=== PATIENT | female | born 1970 | race Caucasian/White ===

== ENCOUNTER 2016-10-10 19:08 | Emergency (ER) | payer OTHER ==
--- NOTE | 2016-10-10 20:56 | ED NURSING NOTES ---
Clinical Report - Nurses [facility] [address] [place] [address] 10/10/2016 19:09 Patient: JASE SPARROW TRIAGE Triage time 1915. Acuity: LEVEL 2. Chief Complaint: CHEST PAIN. --19:22 Nicholas Valentine R.N. 19:15 10/10/16. BP: 166/107. HR: 90. RR: 18. O2 saturation: 100%. Temp: 98.4 F. Pain level now 03/26. --19:22 Nicholas Valentine R.N. Weight: 81.6 kg stated. Height/Length: 61 inches Per Patient. BMI: 34. --19:21 Nicholas Valentine R.N. Medications Aspirin Oral. --19:18 Nicholas Valentine R.N. Tylenol PM Extra Strength Oral. --19:19 Nicholas Valentine R.N. Allergies Codeine. --19:19 Nicholas Valentine R.N. History Arrived by private vehicle. Historian: patient. Accompanied by spouse. Onset. (about 3 weeks ago). ( much worse starting at about noon. pt at work at the time and couldn't leave work.). 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 SOCIAL HX: Alcohol use; consumes three glasses of wine daily. History of weekly drug use: marijuana. Recently used drugs yesterday. FALL RISK ASSESSMENT: Fall risk assessment completed. No fall risk identified. NUTRITIONAL RISK ASSESSMENT: The nutritional risk assessment revealed no deficiencies. FUNCTIONAL ASSESSMENT: Functional assessment: no impairments noted. LEARNING NEEDS ASSESSMENT: The learning needs assessment revealed no barriers. SKIN INTEGRITY ASSESSMENT: Skin integrity risk assessment completed. No skin integrity risk identified. --19:22 Nicholas Valentine R.N. PROBLEMS: Anxiety Reaction. Atypical Chest Pain. Gastroesophageal Reflux. --19:20 Nicholas Valentine R.N. ADDITIONAL SURGERIES: Appendectomy. Hysterectomy. Oophorectomy. --19:20 Meme, Nicholas, R.N. PHYSICAL ASSESSMENT Ambulatory to room. GENERAL / NEURO / PSYCH: Alert. Oriented X 4. Appears anxious. HEENT: Mucous membranes are pink. RESPIRATORY: Respirations not labored. Breath sounds within normal limits. CVS: Heart sounds within normal limits. Pulses within normal limits. Capillary refill less than 2 seconds. GI / : Abdomen soft and nontender. EXTREMITIES: No lower extremity edema. SKIN: Skin is warm and dry. Normal skin turgor. --19:23 Nicholas Valentine R.N. NURSING PROGRESS NOTES 19:25 10/10/2016 Site #1 started via IV in the left antecubital space with an 20g angiocath, with aseptic technique and good blood return; one attempt. Blood drawn: rainbow set. Labeled in the presence of the patient and sent to the lab. Saline lock flushed with saline. --19:25 Nicholas Valentine R.N. Cardiac rhythm: normal sinus rhythm. Monitoring of patient in place. EKG was performed by a tech and shown to the ED physician. Patient gowned. Head of bed elevated. Reassurance given. Patient identifiers checked. Call light placed in reach. Side rails up x 2. Bed placed in lowest position. Brakes of bed on. --19:27 Nicholas Valentine R.N. EKG time: (1918). EKG was ordered, performed by a tech and shown to the ED physician. --19:32 Robe Goldberg ER Radiator Specialist 20:25 10/10/2016 GI COCKTAIL WHITE (Simethicone) PO 50 mL given. Allergies verified and confirmed 5 rights. --20:35 Nicholas Valentine R.N. 20:26 10/10/2016 Ativan (LORazepam) IVP 1 mg given. via site #1. Allergies verified, confirmed 5 rights and sedative warning given to the patient and patient's signal fitter. IV patency established. IV site checked: no pain, redness, or swelling. IV flushed thoroughly pre- and post-medication administration. --20:36 Nicholas Valentine R.N. 21:12. The patient is calm and resting quietly. RESPIRATORY: No respiratory distress. SKIN: Skin is warm and dry. Skin color within normal limits. --21:14 Jesse Balbuena R.N. DISPOSITION / DISCHARGE 21:09 10/10/2016 Site #1 removed upon discharge. Catheter intact. Bandage applied. --21:14 Jesse Balbuena R.N. Departure time: 21:14. Condition at departure: stable. No learning barriers present. Discharge instructions provided and reviewed with the patient and spouse. Reviewed medication(s) side effects, precautions, dosing and course information. Prescription(s) given to the patient. Patient and spouse verbalized understanding. Written instructions provided in Syrian. The patient was discharged home and accompanied by spouse. She left the Emergency Department ambulatory and via private vehicle. Spouse driving. FALL RISK ASSESSMENT: Fall risk assessment completed. No fall risk identified. --21:14 Jesse Balbuena R.N. 21:07 10/10/16. BP: 144/90. HR: 88. RR: 15. O2 saturation: 100% on room air. --21:14 Jesse Balbuena R.N. Locked/Released at 10/11/2016 0:04 by Jesse Balbuena R.N.
--- NOTE | 2016-10-10 20:56 | ED ORDER SUMMARY ---
..... Patient: JASE SPARROW OrderSheet [facility] VisitID: [id number] [place] [address] 46y, F Registration Date/Time: 10/10/2016 ORDER SHEET Weight: 81.6 kg (stated) Allergies: Codeine GENERAL ORDERS: Call Center Support Representative (Continuous) (19:10/10/2016 Leeanna KENNEDY) (Ack 19:32 LMuller) (20:13 Meghann R.N.) Cardiac Panel Stat (:10/10/2016 Leeanna KENNEDY) (Ack 19:32 LMuller) (20:13 Meghann R.N.) D-Dimer Urgent (:10/10/2016 Leeanna KENNEDY) (Ack 19:32 LMuller) (20:13 Meghann R.N.) TSH Urgent (:10/10/2016 Leeanna KENNEDY) (Ack 19:32 LMuller) (20:13 Meghann R.N.) Pulse oximeter (:30 10/10/2016 Leeanna KENNEDY) (Ack 19:32 LMuller) (20:13 Meghann R.N.) EKG - ER Stat (:10/10/2016 Leeanna KENNEDY) (19:32 CHagerty ER Electromechanical Assembly Technician) (Ack 19:32 LMuller) (19:32 LMuller) MEDICATION ORDERS: GI Cocktail WHITE PO 50 mL (NOW) (19:10/10/2016 Leeanna KENNEDY) (20:35 Meghann R.N.) IV FLUIDS: Ativan IV 1 mg (NOW) (19:10/10/2016 Leeanna KENNEDY) (20:36 Meghann R.N.) IV Saline Lock (:10/10/2016 Leeanna KENNEDY) (20:13 Meghann R.N.) ORDER SHEET NOTES: [Electronically signed by Jesse Balbuena R.N. (00:04 10/11/2016)] [Electronically signed by Moises Dick MD (20:48 10/14/2016)] [Electronically locked/signed by Jesse Balbuena R.N. (00:04 10/11/2016)]
--- NOTE | 2016-10-10 20:56 | ED CLINICAL REPORT ---
Clinical Report - Physicians/Mid Levels [facility] [address] [place] [address] 10/10/2016 19:09 Patient: JASE SPARROW Time Seen: 19:25 Oct 10 2016. Arrived- By private vehicle. Historian- patient. CPT: ER phys charges level 4 plus (#[id number]). EKG interpretation (#[id number]). HISTORY OF PRESENT ILLNESS Chief Complaint: CHEST PAIN. It is described as tightness, aching, "pain" and well localized and it is described as located in the left chest area. This started about 3 weeks ago; about 3 weeks ago). ( much worse starting at about noon. pt at work at the time and couldn't leave work.). and is still present (worse today). No nausea, vomiting or diaphoresis. She has had difficulty breathing (Transient). (Patient indicates that she's been under a huge amount of stress since February 2016. 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 She has not been getting regular sleep.). Similar symptoms previously: None. Recent medical care: Not recently seen/assessed. REVIEW OF SYSTEMS No fever, chills, cough, pedal edema or calf pain. No fainting episodes, sore throat, abdominal pain, black stools or difficulty with urination. No skin rash, enlarged lymph nodes or joint pain. All systems otherwise negative, except as recorded above. PAST HISTORY Appendectomy. Hysterectomy. Oophorectomy. SOCIAL HISTORY Alcohol use. History of drug use: marijuana. ADDITIONAL NOTES The nursing notes have been reviewed. PHYSICAL EXAM Vital Signs: 10/10/2016 19:15 BP: 166/107. HR: 90. RR: 18. O2 saturation: 100%. Temp: 98.4 F. Appearance: Alert. Anxious. Marfanoid habitus. Eyes: Eyes normal inspection. ENT: Pharynx normal. Neck: Normal inspection. Neck supple. CVS: Normal heart rate and rhythm. Heart sounds normal. Pulses normal. Respiratory: No respiratory distress. Breath sounds normal. Chest nontender. Abdomen: Mild tenderness in the epigastric area. Back: Normal external inspection. Skin: Skin warm. Normal skin color. No rash. Extremities: Extremities exhibit normal ROM. No lower extremity edema. Neuro: Oriented X 3. No motor deficit. No sensory deficit. Abnormal reflexes. LABS, X-RAYS, AND EKG EKG: Normal EKG. Laboratory Tests: CBC w Diff: (YOUNG: 10/10/2016 19:25) ( MsgRcvd 10/10/2016 19:35) Final results Test Result Flag Units (Reference) WHITE BLOOD COUNT 7.6 K/uL (4.5-11.5) RED BLOOD COUNT 4.32 M/uL (4.00-5.20) HEMOGLOBIN 13.4 gm/dL (12.0-16.0) HEMATOCRIT 40.1 % (36.0-46.0) MEAN CELL VOLUME 93 fL (80-100) MEAN CORPUSCULAR HGB 31 pg (26-34) MEAN CORPUSCULAR HGB CONC 34 g/dL (31-37) RED CELL DISTRIBUTION WIDTH 11.7 % (11.6-14.8) PLATELET COUNT 201 K/uL (150-400) NEUTROPHIL % 65.2 % (50-75) LYMPH % 26.7 % (25-40) MONO % 6.5 % (3-14) EOSINOPHIL % 1.0 % (0-4) BASOPHIL % 0.6 % (0-2) [id number]: (YOUNG: 10/10/2016 19:25) ( MsgRcvd 10/10/2016 19:49) Final results Test Result Flag Units (Reference) D-DIMER QUANTITATIVE < 0.27 L ug/mLFEU (0.27-0.52) The primary value of this quantitative assay relates toits negative predictive value (i.e. exclusion) of pulmonaryembolism/deep vein thrombosis/DIC.Elevated levels of d-dimer may also occur with:, age, cancer, inflammation, liver disease,post-op, infection, hematoma, coronary disease, peripheralarteriopathy, bleeding disorders and thrombolytic treatment.Results should be correlated with other clinical andradiological data.Testing Methodology: Latex Immunoassay TSH: (YOUNG: 10/10/2016 19:25) ( MsgRcvd 10/10/2016 20:14) Final results Test Result Flag Units (Reference) THYROID STIMULATING HORMONE 7.624 H uIU/mL (0.34-3.74) CHEM 13 PANEL: (YOUNG: 10/10/2016 19:25) ( MsgRcvd 10/10/2016 20:13) Final results Test Result Flag Units (Reference) GLUCOSE 100 mg/dL (70-110) BUN 17 mg/dL (7-18) CREATININE 0.8 mg/dL (0.6-1.3) Estimated GFR >60 mL/min Estimated GFR- >60 mL/min Note: Persistent reduction over 3 months in eGFR<60 mL/min/1.73 m2 defines CKD. Patients with eGFR values>=60 mL/min/1.73 m2 may also have CKD if evidence ofpersistent proteinuria. Additional information may be foundat www.kidney.org. SODIUM 139 mmol/L (136-145) POTASSIUM 3.6 mmol/L (3.5-5.1) CHLORIDE 101 mmol/L (98-107) CARBON DIOXIDE 26 mmol/L (21-32) CALCIUM 9.2 mg/dL (8.5-10.1) TOTAL PROTEIN 8.2 g/dL (6.4-8.2) ALBUMIN 4.4 g/dL (3.3-5.0) BILIRUBIN, TOTAL 1.1 H mg/dL (0.0-1.0) ALKALINE PHOSPHATASE 57 U/L (46-116) AST (SGOT) 20 U/L (15-37) ALT (SGPT) 30 U/L (12-78) CPK 104 U/L (24-260) MAGNESIUM 1.9 mg/dL (1.8-2.4) TROPONIN I <0.05 L ng/mL (0.00-1.5) TROPONIN REFERENCE RANGE:<0.1 NEGATIVE0.1-1.5 INDETERMINANT>1.5 POSITIVE . PROGRESS AND PROCEDURES Course of Care: Hep-Lock Ativan 1 mg IV White GI cocktail 50 ML's by mouth. Patient is stable. The patient's symptoms are now gone. Symptoms much better. Patient/family counseled. Disposition: Discharged. Condition: stable and improved. CLINICAL IMPRESSION Anxiety reaction with hyperventilation. Chest pain of GI origin (due to esophageal reflux). Multiple stressors. INSTRUCTIONS Avoid stimulants (such as cigarettes, coffee, cold medicines, sinus medicines, street drugs). (regular exercise, diet and sleep are important.). Warnings: Further evaluation is necessary. SEDATIVE MEDICATION: You were given sedative medication during your visit. Do not drive or operate dangerous machinery. GENERAL WARNINGS: Return or contact your physician immediately if your condition worsens or changes unexpectedly, if not improving as expected, or if other problems arise. Your Current Medications: CONTINUE TAKING THE FOLLOWING MEDICATIONS: Aspirin Oral. Tylenol PM Extra Strength Oral. Prescription Medications: Alprazolam 0.5 mg: take 1-2 orally every 6 hours as needed for anxiety. Dispense twenty (20). No refill. Carafate 1 gm tablets: take 1 orally four times daily (1 hour before meals and at bedtime). Dispense sixty (60). No refills. Substitution is permissible. Prilosec 40 mg capsules: take 1 capsule orally every day. Dispense fifteen (15). No refill. Substitution is permissible. Follow-up: Follow up with your doctor in one week. Call for an appointment. Understanding of the discharge instructions verbalized by patient. Discharge instructions reviewed with and understanding was verbalized by spouse. (Electronically signed by Moises Dick MD 10/14/2016 20:48)
--- NOTE | 2016-10-10 20:56 | ED ORDER SUMMARY ---
..... Patient: JASE SPARROW OrderSheet [facility] VisitID: [id number] [place] [address] 46y, F Registration Date/Time: 10/10/2016 ORDER SHEET Weight: 81.6 kg (stated) Allergies: Codeine GENERAL ORDERS: Dental Detail Representative (Continuous) (19:10/10/2016 Leeanna KENNEDY) (Ack 19:32 LMuller) (20:13 Meghann R.N.) Cardiac Panel Stat (:10/10/2016 Leeanna KENNEDY) (Ack 19:32 LMuller) (20:13 Meghann R.N.) D-Dimer Urgent (:10/10/2016 Leeanna KENNEDY) (Ack 19:32 LMuller) (20:13 Meghann R.N.) TSH Urgent (:10/10/2016 Leeanna KENNEDY) (Ack 19:32 LMuller) (20:13 Meghann R.N.) Pulse oximeter (:30 10/10/2016 Leeanna KENNEDY) (Ack 19:32 LMuller) (20:13 Meghann R.N.) EKG - ER Stat (:10/10/2016 Leeanna KENNEDY) (19:32 CHagerty ER Didactic Instructor) (Ack 19:32 LMuller) (19:32 LMuller) MEDICATION ORDERS: GI Cocktail WHITE PO 50 mL (NOW) (19:10/10/2016 Leeanna KENNEDY) (20:35 Meghann R.N.) IV FLUIDS: Ativan IV 1 mg (NOW) (19:10/10/2016 Leeanna KENNEDY) (20:36 Meghann R.N.) IV Saline Lock (:10/10/2016 Leeanna KENNEDY) (20:13 Meghann R.N.) ORDER SHEET NOTES: [Electronically signed by Jesse Balbuena R.N. (00:04 10/11/2016)] [Electronically signed by Moises Dick MD (20:48 10/14/2016)] [Electronically locked/signed by Jesse Balbuena R.N. (00:04 10/11/2016)]
--- NOTE | 2016-10-10 20:56 | ED NURSING NOTES ---
Clinical Report - Nurses [facility] [address] [place] [address] 10/10/2016 19:09 Patient: JASE SPARROW TRIAGE Triage time 1915. Acuity: LEVEL 2. Chief Complaint: CHEST PAIN. --19:22 Nicholas Valentine R.N. 19:15 10/10/16. BP: 166/107. HR: 90. RR: 18. O2 saturation: 100%. Temp: 98.4 F. Pain level now 03/26. --19:22 Nicholas Valentine R.N. Weight: 81.6 kg stated. Height/Length: 61 inches Per Patient. BMI: 34. --19:21 Nicholas Valentine R.N. Medications Aspirin Oral. --19:18 Nicholas Valentine R.N. Tylenol PM Extra Strength Oral. --19:19 Nicholas Valentine R.N. Allergies Codeine. --19:19 Nicholas Valentine R.N. History Arrived by private vehicle. Historian: patient. Accompanied by spouse. Onset. (about 3 weeks ago). ( much worse starting at about noon. pt at work at the time and couldn't leave work.). 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 SOCIAL HX: Alcohol use; consumes three glasses of wine daily. History of weekly drug use: marijuana. Recently used drugs yesterday. FALL RISK ASSESSMENT: Fall risk assessment completed. No fall risk identified. NUTRITIONAL RISK ASSESSMENT: The nutritional risk assessment revealed no deficiencies. FUNCTIONAL ASSESSMENT: Functional assessment: no impairments noted. LEARNING NEEDS ASSESSMENT: The learning needs assessment revealed no barriers. SKIN INTEGRITY ASSESSMENT: Skin integrity risk assessment completed. No skin integrity risk identified. --19:22 Nicholas Valentine R.N. PROBLEMS: Anxiety Reaction. Atypical Chest Pain. Gastroesophageal Reflux. --19:20 Nicholas Valentine R.N. ADDITIONAL SURGERIES: Appendectomy. Hysterectomy. Oophorectomy. --19:20 Meme, Nicholas, R.N. PHYSICAL ASSESSMENT Ambulatory to room. GENERAL / NEURO / PSYCH: Alert. Oriented X 4. Appears anxious. HEENT: Mucous membranes are pink. RESPIRATORY: Respirations not labored. Breath sounds within normal limits. CVS: Heart sounds within normal limits. Pulses within normal limits. Capillary refill less than 2 seconds. GI / : Abdomen soft and nontender. EXTREMITIES: No lower extremity edema. SKIN: Skin is warm and dry. Normal skin turgor. --19:23 Nicholas Valentine R.N. NURSING PROGRESS NOTES 19:25 10/10/2016 Site #1 started via IV in the left antecubital space with an 20g angiocath, with aseptic technique and good blood return; one attempt. Blood drawn: rainbow set. Labeled in the presence of the patient and sent to the lab. Saline lock flushed with saline. --19:25 Nicholas Valentine R.N. Cardiac rhythm: normal sinus rhythm. Monitoring of patient in place. EKG was performed by a tech and shown to the ED physician. Patient gowned. Head of bed elevated. Reassurance given. Patient identifiers checked. Call light placed in reach. Side rails up x 2. Bed placed in lowest position. Brakes of bed on. --19:27 Nicholas Valentine R.N. EKG time: (1918). EKG was ordered, performed by a tech and shown to the ED physician. --19:32 Robe Goldberg ER Product Representative 20:25 10/10/2016 GI COCKTAIL WHITE (Simethicone) PO 50 mL given. Allergies verified and confirmed 5 rights. --20:35 Nicholas Valentine R.N. 20:26 10/10/2016 Ativan (LORazepam) IVP 1 mg given. via site #1. Allergies verified, confirmed 5 rights and sedative warning given to the patient and patient's broom handle dipper. IV patency established. IV site checked: no pain, redness, or swelling. IV flushed thoroughly pre- and post-medication administration. --20:36 Nicholas Valentine R.N. 21:12. The patient is calm and resting quietly. RESPIRATORY: No respiratory distress. SKIN: Skin is warm and dry. Skin color within normal limits. --21:14 Jesse Balbuena R.N. DISPOSITION / DISCHARGE 21:09 10/10/2016 Site #1 removed upon discharge. Catheter intact. Bandage applied. --21:14 Jesse Balbuena R.N. Departure time: 21:14. Condition at departure: stable. No learning barriers present. Discharge instructions provided and reviewed with the patient and spouse. Reviewed medication(s) side effects, precautions, dosing and course information. Prescription(s) given to the patient. Patient and spouse verbalized understanding. Written instructions provided in Samoan. The patient was discharged home and accompanied by spouse. She left the Emergency Department ambulatory and via private vehicle. Spouse driving. FALL RISK ASSESSMENT: Fall risk assessment completed. No fall risk identified. --21:14 Jesse Balbuena R.N. 21:07 10/10/16. BP: 144/90. HR: 88. RR: 15. O2 saturation: 100% on room air. --21:14 Jesse Balbuena R.N. Locked/Released at 10/11/2016 0:04 by Jesse Balbuena R.N.
--- NOTE | 2016-10-14 20:48 | ED MED RECONCILIATION SUMMARY ---
Patient: JASE SPARROW Medication Reconciliation Report [facility] VisitID: [id number] [place] [address] 46y, F Registration Date/Time: 10/10/2016 Weight: 81.6 kg Height/Length: 61 in. BMI: 34.0 ALLERGIES: Codeine The patient's Home Medications are listed below: CONTINUE TAKING THE FOLLOWING MEDICATIONS: Aspirin Oral Tylenol PM Extra Strength Oral The source(s) of the original Home Medication information: Not obtained. The following Medications were given to the patient in the Emergency Department: GI COCKTAIL WHITE [PO] PO 50 mL, administered: 10/10/2016 8:25:00 PM Ativan [IVP] IVP 1 mg, administered: 10/10/2016 8:26:00 PM The following Medications were prescribed to the patient: Alprazolam 0.5 mg: take 1-2 orally every 6 hours as needed for anxiety. Dispense twenty (20). No refill. -- Moises Dick MD Carafate 1 gm tablets: take 1 orally four times daily (1 hour before meals and at bedtime). Dispense sixty (60). No refills. Substitution is permissible. -- Moises Dick MD Prilosec 40 mg capsules: take 1 capsule orally every day. Dispense fifteen (15). No refill. Substitution is permissible. -- Moises Dick MD
--- NOTE | 2016-10-14 20:48 | ED DISCHARGE INSTRUCTIONS ---
Patient: JASE SPARROW General Instructions [facility] VisitID: [id number] [place] [address] 46y, F Registration Date/Time: 10/10/2016 Anxiety reaction with hyperventilation. Chest pain of GI origin (due to esophageal reflux). Multiple stressors. INSTRUCTIONS Avoid stimulants (such as cigarettes, coffee, cold medicines, sinus medicines, street drugs). (regular exercise, diet and sleep are important.). Warnings: Further evaluation is necessary. SEDATIVE MEDICATION: You were given sedative medication during your visit. Do not drive or operate dangerous machinery. GENERAL WARNINGS: Return or contact your physician immediately if your condition worsens or changes unexpectedly, if not improving as expected, or if other problems arise. Your Current Medications: CONTINUE TAKING THE FOLLOWING MEDICATIONS: Aspirin Oral. Tylenol PM Extra Strength Oral. Prescription Medications: Alprazolam 0.5 mg: take 1-2 orally every 6 hours as needed for anxiety. Dispense twenty (20). No refill. Carafate 1 gm tablets: take 1 orally four times daily (1 hour before meals and at bedtime). Dispense sixty (60). No refills. Substitution is permissible. Prilosec 40 mg capsules: take 1 capsule orally every day. Dispense fifteen (15). No refill. Substitution is permissible. Follow-up: Follow up with your doctor in one week. Call for an appointment. Understanding of the discharge instructions verbalized by patient. Discharge instructions reviewed with and understanding was verbalized by spouse. ADDITIONAL INFORMATION GERD (Adult) The esophagus is a tube that carries food from the mouth to the stomach. A valve at the lower end of the esophagus prevents stomach acid from flowing upward. If this valve does not work properly, acid from the stomach enters the esophagus. If this occurs over and over, the acid will injure the lining of the esophagus. This condition is called GERD (gastroesophageal reflux disease) or acid reflux. When stomach acid flows upward into the esophagus, it causes burning, pressure or sharp pain in the upper abdomen or mid to lower chest. The pain can spread to the neck, back, or shoulder, similar to heart pain (angina). There may be belching, an acid taste in the back of the throat, chronic cough, or sore throat or hoarseness. GERD symptoms often occur during the day after a big meal, but it can also occur at night when lying down. Smoking,as well as drinking alcohol, increases the risk of GERD. GERD is a chronic condition. Once it begins, it is often lifelong. Treatment includes changes in eating habits and the use of acid florencio medications to decrease the amount of acid in the stomach. Symptoms often improve with treatment, but if treatment is stopped, the symptoms usually return after a few months. So most persons with GERD will need to continue treatment. Home Care: Take the prescribed acid florencio medication for the full course of treatment even if you begin to feel better sooner. This medication can take up to several days to fully control your symptoms. If you cant afford the prescribed medication, you can try [id number] acid blockers, such as Pepcid AC, Tagamet, Zantac, or Aciphex. If these do not relieve your symptoms, a stronger acid-florencio can be tried, such as Prilosec OTC. You can use antacids, such as Tums, Rolaids, Mylanta, or Maalox, for pain. This will be useful the first few days after starting acid blockers when the blockers havent started working yet. Follow the directions on the label. Liquid antacids may work better than tablets. Note that antacids can interfere with absorption of certain medications. Specifically, do not take Tagamet (cimetidine), Zantac (ranitidine), or Carafate (sucralfate) within 1 hour of taking an antacid. Talk with your pharmacist if you have any questions. Limit or avoid fatty, fried, and spicy foods, as well as coffee, chocolate, mint, and foods with high acid content such as tomatoes and citrus fruit and juices (orange, grapefruit, lemon). Avoid alcohol and smoking. Dont eat large meals, especially at night. Frequent, smaller meals are best. Do not lie down right after eating. And dont eat anything 3 hours before going to bed. If you are overweight, losing weight will reduce symptoms. Women should not wear corsets or girdles because this increases pressure on the stomach and worsens reflux. If your symptoms occur during sleep, use a foam wedge to elevate your upper body (not just your head.) Or, place 4" blocks under the head of your bed. Follow Up with your doctor or as advised by our staff. Further testing may be needed. If you do not begin to improve over the next 4 days, contact your doctor. If you had an x-ray, CT scan, or ECG (electrocardiogram), it will be reviewed by a specialist. Youll be notified of any new findings that affect your care. Get Prompt Medical Attention if any of the following occur: Stomach pain gets worse or moves to the lower right abdomen (appendix area) Chest pain appears or gets worse, or spreads to the back, neck, shoulder, or arm Frequent vomiting (cant keep down liquids) Blood in the stool or vomit (red or black in color) Feeling weak or dizzy, fainting, or trouble breathing Fever of 100.4F (38C) or higher, or as directed by your healthcare provider Stress Reaction Anxiety is the feeling we all get when we think something bad might happen. It is a normal response to stress and usually causes only a mild reaction. When anxiety becomes more severe, emotions may interfere with daily life. In some cases, you may not even be aware of what it is youre anxious about! During an anxiety reaction, you may feel like you are helpless, nervous, depressed or irritable. Your body may show signs of anxiety in many ways. You may experience dry mouth, shakiness, dizziness, weakness, trouble breathing, chest pressure, headache, nausea, diarrhea, tiredness, inability to sleep or sexual problems. Home Care: 1) Try to locate the sources of stress in your life. They may not be obvious! These may include: -- Daily hassles of life which pile up (traffic jams, missed appointments, car troubles, etc.) -- Major life changes, both good (new baby, job promotion) and bad (loss of job, loss of loved one) -- Overload: feeling that you have too many responsibilities and can't take care of all of them at once -- Feeling helpless, feeling that your problems are beyond what youre able to solve 2) Notice how your body reacts to stress. Learn to listen to your body signals. This will help you take action before the stress becomes severe. 3) When you can, do something about the source of your stress. (Avoid hassles, limit the amount of change that happens in your life at one time and take a break when you feel overloaded). 4) Unfortunately, many stressful situations cannot be avoided. It is necessary to learn HOW TO MANAGE STRESS better. There are many proven methods that will reduce your anxiety. These include simple things like exercise, good nutrition and adequate rest. Also, there are certain techniques that are helpful: relaxation and breathing exercises, visualization, biofeedback and meditation. For more information about this, consult your doctor or go to a local bookstore and review the many books and tapes available on this subject. Follow Up If you feel that your anxiety is not responding to self-help measures, contact your doctor or make an appointment with a counselor. Get Prompt Medical Attention if any of the following occur: -- Your symptoms get worse -- Chest pain or trouble breathing -- Severe headache not relieved by rest and mild pain reliever -- Rapid or irregular heartbeat, fainting Hyperventilation Syndrome Hyperventilation Syndrome is a condition in which you lose control of your breathing. You may find yourself breathing too fast and/or too deep. This can be triggered by pain, anxiety and emotional stress. If hyperventilation continues for more than a few minutes, it can lead to a number of frightening symptoms, such as: Numbness and tingling of the hands, feet and face Clenching of the fingers or toes Dizziness Feeling like you cannot get enough air Chest pains Fainting or feeling like you are going to faint Once these symptoms begin, it is often hard to stop them because they lead to a cycle of more anxiety and more hyperventilation. It is important to understand that this is not a life-threatening condition and it will pass once you are able to relax. Relaxation and stress management methods can be learned and practiced in advance. These can help in the event of a future attack. Home Care: 1) Rest today until feeling back to normal. 2) If symptoms return: Sit or lie down. Remember that what is happening to you is temporary and will pass. Use the relaxation methods you have learned. It is no longer recommended to breathe into a paper bag. Follow Up with your doctor or as directed by our staff if symptoms recur. Get Prompt Medical Attention if any of the following occur: Increasing shortness of breath Fever of 100.0 F (38 C) or higher, or as directed by your healthcare provider Coughing up blood Chest pain that is made worse with each breath Redness, pain or swelling of the leg Ringing in your ears, Severe headache Weakness or fainting Alprazolam Oral tablet What is this medicine? ALPRAZOLAM (dorinda page clements) is a benzodiazepine. It is used to treat anxiety and panic attacks. How should I use this medicine? Take this medicine by mouth with a glass of water. Follow the directions on the prescription label. Take your medicine at regular intervals. Do not take it more often than directed. If you have been taking this medicine regularly for some time, do not suddenly stop taking it. You must gradually reduce the dose or you may get severe side effects. Ask your doctor or health senior care assistant for advice. Even after you stop taking this medicine it can still affect your body for several days. Talk to your termite technician regarding the use of this medicine in children. Special care may be needed. What side effects may I notice from receiving this medicine? Side effects that you should report to your doctor or health senior care assistant as soon as possible: allergic reactions like skin rash, itching or hives, swelling of the face, lips, or tongue confusion, forgetfulness depression difficulty sleeping difficulty speaking feeling faint or lightheaded, falls mood changes, excitability or aggressive behavior muscle cramps trouble passing urine or change in the amount of urine unusually weak or tired Side effects that usually do not require medical attention (report to your doctor or health senior care assistant if they continue or are bothersome): change in sex drive or performance changes in appetite What may interact with this medicine? Do not take this medicine with any of the following medications: certain medicines for HIV infection or AIDS ketoconazole itraconazole This medicine may also interact with the following medications: control pills certain macrolide antibiotics like clarithromycin, erythromycin, troleandomycin cimetidine cyclosporine ergotamine grapefruit juice herbal or dietary supplements like kava kava, melatonin, dehydroepiandrosterone, DHEA, Luh's Wort or valerian imatinib, STI-[id number] isoniazid levodopa medicines for depression, anxiety, or psychotic disturbances prescription pain medicines rifampin, rifapentine, or rifabutin some medicines for blood pressure or heart problems some medicines for seizures like carbamazepine, oxcarbazepine, phenobarbital, phenytoin, primidone What if I miss a dose? If you miss a dose, take it as soon as you can. If it is almost time for your next dose, take only that dose. Do not take double or extra doses. Where should I keep my medicine? Keep out of the reach of children. This medicine can be abused. Keep your medicine in a safe place to protect it from theft. Do not share this medicine with anyone. Selling or giving away this medicine is dangerous and against the law. Store at room temperature between 20 and 25 degrees C (68 and 77 degrees F). Throw away any unused medicine after the expiration date. What should I tell my health care provider before I take this medicine? They need to know if you have any of these conditions: an alcohol or drug abuse problem bipolar disorder, depression, psychosis or other mental health conditions glaucoma kidney or liver disease lung or breathing disease myasthenia gravis Parkinson's disease porphyria seizures or a history of seizures suicidal thoughts an unusual or allergic reaction to alprazolam, other benzodiazepines, foods, dyes, or preservatives or trying to get breast-feeding What should I watch for while using this medicine? Visit your doctor or health senior care assistant for regular checks on your progress. Your body can become dependent on this medicine. Ask your doctor or health senior care assistant if you still need to take it. You may get drowsy or dizzy. Do not drive, use machinery, or do anything that needs mental alertness until you know how this medicine affects you. To reduce the risk of dizzy and fainting spells, do not stand or sit up quickly, especially if you are an older patient. Alcohol may increase dizziness and drowsiness. Avoid alcoholic drinks. Do not treat yourself for coughs, colds or allergies without asking your doctor or health senior care assistant for advice. Some ingredients can increase possible side effects. Omeprazole Magnesium Gastro-resistant tablet What is this medicine? OMEPRAZOLE (oh ME pray zol) prevents the production of acid in the stomach. It is used to treat the symptoms of heartburn. You can buy this medicine without a prescription. This product is not for long-term use, unless otherwise directed by your doctor or health senior care assistant. How should I use this medicine? Take this medicine by mouth. Follow the directions on the product label. If you are taking this medicine without a prescription, take one tablet every day. Do not use for longer than 14 days or repeat a course of treatment more often than every 4 months unless directed by a doctor or healthcare professional. Take your dose at regular intervals every 24 hours. Swallow the tablet whole with a drink of water. Do not crush, break or chew. This medicine works best if taken on an empty stomach 30 minutes before breakfast. If you are using this medicine with the prescription of your doctor or healthcare professional, follow the directions you were given. Do not take your medicine more often than directed. Talk to your termite technician regarding the use of this medicine in children. Special care may be needed. What side effects may I notice from receiving this medicine? Side effects that you should report to your doctor or health senior care assistant as soon as possible: allergic reactions like skin rash, itching or hives, swelling of the face, lips, or tongue bone, muscle or joint pain breathing problems chest pain or chest tightness dark yellow or brown urine diarrhea dizziness fast, irregular heartbeat feeling faint or lightheaded fever or sore throat muscle spasm palpitations redness, blistering, peeling or loosening of the skin, including inside the mouth seizures tremors unusual bleeding or bruising unusually weak or tired yellowing of the eyes or skin Side effects that usually do not require medical attention (Report these to your doctor or health senior care assistant if they continue or are bothersome.): constipation dry mouth headache loose stools nausea What may interact with this medicine? Do not take this medicine with any of the following medications: atazanavir clopidogrel nelfinavir This medicine may also interact with the following medications: ampicillin certain medicines for anxiety or sleep certain medicines that treat or prevent blood clots like warfarin cyclosporine diazepam digoxin disulfiram iron salts phenytoin prescription medicine for fungal or yeast infection like itraconazole, ketoconazole, voriconazole saquinavir tacrolimus What if I miss a dose? If you miss a dose, take it as soon as you can. If it is almost time for your next dose, take only that dose. Do not take double or extra doses. Where should I keep my medicine? Keep out of the reach of children. Store at room temperature between 20 and 25 degrees C (68 and 77 degrees F). Protect from light and moisture. Throw away any unused medicine after the expiration date. What should I tell my health care provider before I take this medicine? They need to know if you have any of these conditions: black or bloody stools chest pain difficulty swallowing have had heartburn for over 3 months have heartburn with dizziness, lightheadedness or sweating liver disease stomach pain unexplained weight loss vomiting with blood wheezing an unusual or allergic reaction to omeprazole, other medicines, foods, dyes, or preservatives or trying to get breast-feeding What should I watch for while using this medicine? It can take several days before your heartburn gets better. Check with your doctor or health senior care assistant if your condition does not start to get better, or if it gets worse. Do not treat diarrhea with over the counter products. Contact your doctor if you have diarrhea that lasts more than 2 days or if it is severe and watery. Do not treat yourself for heartburn with this medicine for more than 14 days in a row. You should only use this medicine for a 2-week treatment period once every 4 months. If your symptoms return shortly after your therapy is complete, or within the 4 month time frame, call your doctor or health senior care assistant. You have been given the following additional information: GERD (Adult) Anxiety Reaction Hyperventilation Syndrome Alprazolam Oral tablet Omeprazole Magnesium Gastro-resistant tablet (Electronically signed by Moises Dick MD 10/14/2016 20:48)
--- NOTE | 2016-10-14 20:48 | ED MAR SUMMARY ---
..... Medication Administration Record [facility] [address] [place] [address] Patient: JASE SPARROW Visit ID: [id number] 46y, F Weight: 81.6 kg Height/Length: 61 in BMI: 34 ALLERGIES: Codeine Given 20:25 10/10/2016 Nicholas Valentine R.N. Medication Administered: GI COCKTAIL WHITE [PO] (SIMETHICONE), Dose: 50 mL PO. Medication Ordered: GI Cocktail WHITE PO 50 mL (NOW). Given 20:26 10/10/2016 Nicholas Valentine RGiulia Medication Administered: ATIVAN [IVP] (LORAZEPAM), Dose: 1 mg IVP, Site: #1 left AC. Medication Ordered: Ativan IV 1 mg (NOW).
--- NOTE | 2016-10-14 20:48 | ED MAR SUMMARY ---
..... Medication Administration Record [facility] [address] [place] [address] Patient: JASE SPARROW Visit ID: [id number] 46y, F Weight: 81.6 kg Height/Length: 61 in BMI: 34 ALLERGIES: Codeine Given 20:25 10/10/2016 Nicholas Valentine R.N. Medication Administered: GI COCKTAIL WHITE [PO] (SIMETHICONE), Dose: 50 mL PO. Medication Ordered: GI Cocktail WHITE PO 50 mL (NOW). Given 20:26 10/10/2016 Nicholas Valentine RGiulia Medication Administered: ATIVAN [IVP] (LORAZEPAM), Dose: 1 mg IVP, Site: #1 left AC. Medication Ordered: Ativan IV 1 mg (NOW).
--- NOTE | 2016-10-14 20:48 | ED MED RECONCILIATION SUMMARY ---
Patient: JASE SPARROW Medication Reconciliation Report [facility] VisitID: [id number] [place] [address] 46y, F Registration Date/Time: 10/10/2016 Weight: 81.6 kg Height/Length: 61 in. BMI: 34.0 ALLERGIES: Codeine The patient's Home Medications are listed below: CONTINUE TAKING THE FOLLOWING MEDICATIONS: Aspirin Oral Tylenol PM Extra Strength Oral The source(s) of the original Home Medication information: Not obtained. The following Medications were given to the patient in the Emergency Department: GI COCKTAIL WHITE [PO] PO 50 mL, administered: 10/10/2016 8:25:00 PM Ativan [IVP] IVP 1 mg, administered: 10/10/2016 8:26:00 PM The following Medications were prescribed to the patient: Alprazolam 0.5 mg: take 1-2 orally every 6 hours as needed for anxiety. Dispense twenty (20). No refill. -- Moises Dick MD Carafate 1 gm tablets: take 1 orally four times daily (1 hour before meals and at bedtime). Dispense sixty (60). No refills. Substitution is permissible. -- Moises Dick MD Prilosec 40 mg capsules: take 1 capsule orally every day. Dispense fifteen (15). No refill. Substitution is permissible. -- Moises Dick MD
== END 2016-10-10 21:15 | disposition home or self-care (01) ==
LOC: ED SRH 19:08
DX: F41.1 Generalized anxiety disorder (principal); R06.4 Hyperventilation; F43.9 Reaction to severe stress, unspecified; K21.9 Gastro-esophageal reflux disease without esophagitis; R07.89 Other chest pain; Z79.82 Long term (current) use of aspirin; Z79.899 Other long term (current) drug therapy; Z88.5 Allergy status to narcotic agent
CPT/HCPCS: 90100; 90616; 91556; 92610; 92720; 93140; 95059